=== PATIENT | female | born 1960 | race Hispanic/Latino ===

== ENCOUNTER → 2017-09-05 | Outpatient (CLI) | payer BC ==
[~2017-09-05] MED LIST: ENAL5TAB PO; METO-409 PO; VENL-53 PO
== END | disposition home or self-care (01) ==
LOC: SHCH 08:00
PROVIDERS: ATTEND Internal Medicine Cardiovascular Disease
DX: I65.23 Occlusion and stenosis of bilateral carotid arteries (principal)
CPT/HCPCS: 93880

== ENCOUNTER → 2024-06-11 | Outpatient (CLI) | payer MEDICARE ==
[~2024-06-11] MED LIST changes: +ENAL-87 PO; -ENAL5TAB PO
[2024-06-11 12:21] LABS: HEMOGLOBIN A1C 5.5 % (4.0-6.0)
[2024-06-11 12:24] LABS: CHOLESTEROL 187 mg/dL (<200); HDL CHOLESTEROL 51 mg/dL (35-85); LDL DIRECT 102 mg/dL (0-99); TRIGLYCERIDES 213 mg/dL (30-200)
== END | disposition home or self-care (01) ==
LOC: LAB 09:45
PROVIDERS: ATTEND Internal Medicine Cardiovascular Disease
DX: I10 Essential (primary) hypertension (principal); Z79.899 Other long term (current) drug therapy
CPT/HCPCS: 36415; 80061; 83036

== ENCOUNTER → 2024-09-02 | Outpatient (CLI) | payer OTHER ==
--- NOTE | 2024-09-03 10:23 | HMCIMG ---
MAMMO SCREENING BILATERAL HISTORY: Screening mammogram. COMPARISON: 05/27/2020 TECHNIQUE: Bilateral screening mammogram with CAD was performed with craniocaudal and mediolateral oblique projections. FINDINGS: The breasts are heterogeneous dense, which may obscure small masses. There is no evidence of a dominant mass, or suspicious microcalcification. There is no evidence of nipple retraction or skin thickening. IMPRESSION: 1. Stable mammogram. Patient was entered into a reminder system with a target due date for their next mammogram. BI-RADS: CATEGORY 2: BENIGN FINDINGS Recommend monthly self breast exam as well as annual clinical examination. A negative x-ray should not delay biopsy if a dominant or clinically suspicious mass is present, since 8-10% of cancers are not identified by mammography. Dense breasts particularly, may obscure an underlying neoplasm. Some of these may be detected clinically and therefore, clinical examination is an essential part of breast evaluation.
== END | disposition home or self-care (01) ==
LOC: RAH 15:07
DX: Z12.31 Encounter for screening mammogram for malignant neoplasm of breast (principal); R92.333 Mammographic heterogeneous density, bilateral breasts
CPT/HCPCS: 77067

== ENCOUNTER → 2024-09-07 | Outpatient (CLI) | payer OTHER | END | disposition home or self-care (01) | LOC: SHCH 12:39 | PROVIDERS: ATTEND Student in an Organized Health Care Education/Training Program | DX: R06.00 Dyspnea, unspecified (principal) | CPT/HCPCS: 93306 ==

== ENCOUNTER → 2025-01-21 | Outpatient (CLI) | payer OTHER ==
--- NOTE | 2025-01-21 15:42 | HMCIMG ---
FOREARM 2VWS RT HISTORY: Pain COMPARISON: None TECHNIQUE: 2 images of the right forearm were obtained. FINDINGS: There is no acute displaced fracture or dislocation. Degenerative changes are seen. IMPRESSION: 1. Findings as described above.
--- NOTE | 2025-01-21 15:49 | HMCIMG ---
ELBOW COMP 3+VWS RT HISTORY: Right elbow pain COMPARISON: None TECHNIQUE: 2 images of right elbow were obtained. FINDINGS: There is no acute displaced fracture or dislocation. Degenerative changes are seen. IMPRESSION: 1. Findings as described above.
--- NOTE | 2025-01-21 16:04 | HMCIMG ---
SHOULDER COMP 2+VWS RT HISTORY: Pain COMPARISON: None TECHNIQUE: 2 images of right shoulder were obtained. FINDINGS: There is no acute displaced fracture or dislocation. Degenerative changes are seen. IMPRESSION: 1. Findings as described above.
== END | disposition home or self-care (01) ==
LOC: RAH 12:22
DX: M19.011 Primary osteoarthritis, right shoulder (principal); M19.041 Primary osteoarthritis, right hand; M19.021 Primary osteoarthritis, right elbow; M25.511 Pain in right shoulder; M25.521 Pain in right elbow; M79.631 Pain in right forearm; G89.29 Other chronic pain
CPT/HCPCS: 73030; 73080; 73090

== ENCOUNTER 2025-06-29 06:21 | Day surgery (SDC) | payer OTHER ==
[2025-06-25 12:07] LABS: IMMATURE GRANULOCYTE ABSOLUTE 0.03 K/uL (0-1); NUCLEATED RED BLOOD CELLS 0.0 % (0.0-0.19); PLATELET COUNT (AUTO) 258 K/uL (130-400); RED BLOOD CELL COUNT(AUTO) 4.58 MIL/uL (4.00-5.50); RED CELL DISTRIBUTION WIDTH 13.0 % (11.0-15.5); WHITE BLOOD COUNT (AUTO) 7.6 K/uL (4.8-10.8)
[2025-06-25 12:15] LABS: CREATININE 0.6 mg/dL (0.5-1.0); GLOMERULAR FILTR. RATE CALC 98.0 mL/min (>90); GLUCOSE,RANDOM 97.0 mg/dL (70-105); SODIUM SERUM 141.0 mmol/L (136-145); UREA NITROGEN, BLOOD 15.0 mg/dL (7-18)
[2025-06-25 12:18] VITALS: BP 123/78; PULSE 73; RESP 18; TEMP 98.2
[~2025-06-29] VITALS: Ht 154.9 cm; Wt 64.5 kg
[2025-06-29] VITALS (15 sets, daily range): BP systolic 107–139; BP diastolic 57–79; PULSE 68–84; RESP 12–18; TEMP 97.3–97.8
[~2025-06-29 06:21] MED LIST changes: +ESCI-8 PO; -METO-409 PO; +SEMAGLUTIDE SQ; -VENL-53 PO
[2025-06-29] MEDS ORDERED: LACTATED RINGERS 1000ML 1,000 ML IV ONE (06:50)
[2025-06-29] MEDS ORDERED: LIDOCAINE PF 100MG/5ML (2%) SYRINGE 5ML ONE (07:37)
[2025-06-29] MEDS ORDERED: MIDAZOLAM HCL 1 MG/ML 2ML VIAL ONE (07:37)
[2025-06-29] MEDS ORDERED: PROMETHAZINE HCL 25 MG/ML 1ML AMPULE IM PRN (08:00)
--- NOTE | 2025-06-29 10:34 | EKG ---
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
[2025-06-29] MEDS ORDERED: GLYCOPYRROLATE 0.2 MG/ML 5 ML VIAL ONE (10:35)
[2025-06-29] MEDS ORDERED: NEOSTIGMINE METHYLSULFATE 1MG/ML IV ONE (10:35)
[2025-06-29] MEDS ORDERED: ACET-2079 PO (11:32)
[2025-06-29] MEDS ORDERED: CEPH500B PO (11:32)
[2025-06-29] MEDS ORDERED: IBUP-2076 PO (11:32)
--- NOTE | 2025-06-29 12:03 | OP ---
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 The patient also has noted the presence of a nodular lesion palpable in the area of the pain. A MRI was performed and this revealed the presence of an intramuscular lipoma with benign characteristics] DESCRIPTION OF PROCEDURE: [After general anesthesia was achieved the right upper extremity was prepped and draped in the usual manner. Attention was given to the extensor area of the proximal forearm were we marked previously the area where the lipoma was present. We proceeded to do a5 cm incision in a longitudinal manner through the skin followed by opening of the extensor fascia of the extensor digitorum. By palpation we will filling were the lesion was and then we proceeded to spread the fibers of the muscle without transecting it the were very deeply able to find the intramuscular lipoma. This was covered by a small thin capsule and then very gradually we proceeded to dissect this lipoma which was penetrating deeply reaching all the way to the posterior interosseous membrane using [employer] retractors. A neurovascular bundle was identified and this was retracted be necessary to do this to be be able to reach the deeper portion of the lipoma which ended mostly into the surface of the ulna. The tumor was removed superficially to be able to see the rest of the tumor extending deeply and then we proceeded to remove the rest in a piecemeal fashion with the rongeur excising only the adipose tissue and protecting the muscle fibers. The tissue showed normal characteristics and going all the way down to the interosseous space and removed was entirely. Once removed we proceeded to remove the retractors and a apply a 4x4s for compression and the tourniquet was deflated. After a few minutes we proceeded to remove the 4x4s and expose the wound noticing that was just a small bleeding vein in the neurovascular bundle which was identified and cauterized with no problem. The rest of the wound have very minimal oozing and after further irrigation was done with normal saline solution we proceeded then to close the wound with a approximation of the skin subcutaneous tissue with 2-0 Monocryl inverted stitches and then with a subcutic ular suture with 3-0 Monocryl. Dermabond was applied to cover the incision and then a soft dressing was applied over it and the forearm was wrapped with a an Emre bandage. The patient was then awakened and extubated and taken to recovery room for follow-up by anesthesia. After a proximally 30 minutes visited with the patient in the recovery room and she demonstrated the presence of a neurapraxia of the radial nerve being able to extend her wrist but not able to extend her digits. The patient was informed about the findings we will continue to monitor. Complication later related to distraction of the nerve during the procedure.] BRIANNA CORTEZ MD Jun 29, 2025 12:03
== END 2025-06-29 14:03 | disposition home or self-care (01) ==
LOC: DAH 06:21
PROVIDERS: ATTEND Orthopaedic Surgery
DX: D17.9 Benign lipomatous neoplasm, unspecified (principal); I10 Essential (primary) hypertension; F41.9 Anxiety disorder, unspecified; Z98.891 History of uterine scar from previous surgery; Z83.3 Family history of diabetes mellitus; Z79.899 Other long term (current) drug therapy; Z98.890 Other specified postprocedural states
CPT/HCPCS: 80048; 85025; 36415; 25076; 88304; 93005; J1100; A4223 ×2; A4663; J7120; J3010; J2270; J3490 ×2; J2003; J2250; J2704; J2405; J2710; J0665 ×2; J0690 ×2; A6223; A4649; A4930 ×2; A4215; A4213; A4222; A4221; A4216